=== PATIENT | female | born 1990 | race American Indian/Alaskan Native ===

== ENCOUNTER 2017-07-08 18:57 | Emergency (ER) | payer OTHER ==
[2017-07-08] MEDS ORDERED: TORADOL IM ONE (23:37)
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
[2017-07-09 01:00] VITALS: BP 112/70
[2017-07-09] MEDS ORDERED: ROBAXIN PO ONE (23:45)
== END 2017-07-09 01:20 | disposition home or self-care (01) ==
LOC: ED 18:57
DX: S40.012A Contusion of left shoulder, initial encounter (principal); J45.909 Unspecified asthma, uncomplicated; V89.2XXA Person injured in unspecified motor-vehicle accident, traffic, initial encounter; Y93.89 Activity, other specified; Y92.89 Other specified places as the place of occurrence of the external cause; Y99.8 Other external cause status
CPT/HCPCS: 71010; 73030; 96372; 99283; J1885